=== PATIENT | male | born 1985 | race Caucasian/White ===

== ENCOUNTER 2020-11-27 21:20 | Emergency (ER) | payer BC ==
--- NOTE | 2020-11-27 23:12 | EDM.PDOC ---
ED HPI GENERAL MEDICAL PROBLEM - General Chief Complaint: Lower Extremity Injury/Pain Stated Complaint: AIR BUBBLES IN LEG Time Seen by Provider: 11/27/20 22:01 Source of Information: Reports: Patient History Limitations: Reports: No Limitations - History of Present Illness INITIAL COMMENTS - FREE TEXT/NARRATIVE: Patient is a 35-year-old male presents today for evaluation of air in his legs. Patient has a what he thinks is an air pocket on the lateral side of his wall right ankle wound that developed a few years ago after a surgery. He developed symptoms similar on the left side. He became concerned because this was slightly painful. Is not red. He took a needle and poked it and no drainage came out of it. He was not sure what it was. He did mention he took a 18-hour car ride to [employer] this past week as well. He denies any shortness of breath leg swelling or other symptoms. Bilateral Lower Leg Pain Score (Numeric/FACES): 7 - Related Data Allergies Allergy/AdvReac Type Severity Reaction Status Date / Time No Known Allergies Allergy Verified 11/27/20 21:53 Past Medical History HEENT History: Reports: None Cardiovascular History: Reports: None Respiratory History: Reports: None - Infectious Disease History Infectious Disease History: Reports: Chicken Pox - Past Surgical History GI Surgical History: Reports: Appendectomy Musculoskeletal Surgical History: Reports: Other (See Below) Other Musculoskeletal Surgeries/Procedures:: ankle Social & Family History - Family History Family Medical History: No Pertinent Family History - Recreational Drug Use Recreational Drug Use: No Review of Systems - Review of Systems Review Of Systems: See Below Constitutional: Reports: No Symptoms Eyes: Reports: No Symptoms Ears: Reports: No Symptoms Nose: Reports: No Symptoms Mouth/Throat: Reports: No Symptoms Respiratory: Reports: No Symptoms Cardiovascular: Reports: No Symptoms GI/Abdominal: Reports: No Symptoms Genitourinary: Reports: No Symptoms Musculoskeletal: Reports: No Symptoms Skin: Reports: No Symptoms Neurological: Reports: No Symptoms Psychiatric: Reports: No Symptoms ED EXAM, GENERAL - Physical Exam Exam: See Below Exam Limited By: No Limitations General Appearance: Alert, WD/WN, No Apparent Distress Head: Atraumatic, Normocephalic Neck: Normal Inspection Respiratory/Chest: No Respiratory Distress, Lungs Clear, Normal Breath Sounds Cardiovascular: Normal Peripheral Pulses, Regular Rate, Rhythm, No Edema, No Gallop, No Murmur GI/Abdominal: Normal Bowel Sounds, Soft, Non-Tender, No Abnormal Bruit Back Exam: Normal Inspection, Full Range of Motion Extremities: Normal Inspection, Normal Range of Motion, Non-Tender, No Pedal Edema, Normal Capillary Refill Neurological: Alert, Oriented, CN II-XII Intact, Normal Cognition, Normal Gait, Normal Reflexes, No Motor/Sensory Deficits Skin Exam: No Rash Lymphatic: No Adenopathy Course - Vital Signs Last Recorded V/S: Last Vital Signs Temp 97.8 F 11/27/20 21:53 Pulse 100 11/27/20 21:53 Resp 17 11/27/20 21:53 BP 135/77 11/27/20 21:53 Pulse Ox 97 11/27/20 21:53 Departure - Departure Time of Disposition: :17 Disposition: Home, Self-Care 01 Condition: Good Clinical Impression: General medical exam - Discharge Information *PRESCRIPTION DRUG MONITORING PROGRAM REVIEWED*: Not Applicable *COPY OF PRESCRIPTION DRUG MONITORING REPORT IN PATIENT MYLENE: Not Applicable Instructions: Muscle Strain, [id number] Referrals: PCP,None [Primary Care Provider] - Forms: ED Department Discharge Additional Instructions: The following information is given to patients seen in the emergency department who are being discharged to home. This information is to outline your options for follow-up care. We provide all patients seen in our emergency department with a follow-up referral. The need for follow-up, as well as the timing and circumstances, are variable depending upon the specifics of your emergency department visit. If you don't have a primary care physician on staff, we will provide you with a referral. We always advise you to contact your personal physician following an emergency department visit to inform them of the circumstance of the visit and for follow-up with them and/or the need for any referrals to a consulting specialist. The emergency department will also refer you to a specialist when appropriate. This referral assures that you have the opportunity for follow-up care with a specialist. All of these measure are taken in an effort to provide you with optimal care, which includes your follow-up. Under all circumstances we always encourage you to contact your private physician who remains a resource for coordinating your care. When calling for follow-up care, please make the office aware that this follow-up is from your recent emergency room visit. If for any reason you are refused follow-up, please contact the [facility] Emergency Department at and asked to speak to the emergency department charge nurse. Please follow up with your primary care physician. If you do not have a primary care physician, see below: [facility] [address] [place] [address] [facility] [address] [place] [address] You were seen today for what is some possibly air pockets in your legs. We did a sonogram at the bedside did not seem to be a blood vessel. Unclear what this is. We want you to get a DVT study tomorrow but you have to go out of town. We recommend that you please come back as early venous to have this DVT study completed. If you have any other concerning signs or symptom please return to ED. Sepsis Event Note (ED) - Evaluation Sepsis Screening Result: No Definite Risk - Focused Exam Vital Signs: Vital Signs Temp Pulse Resp BP Pulse Ox 11/27/20 21:53 97.8 F 100 17 135/77 97 - Assessment/Plan Plan: Patient is a 35-year-old male presents today for evaluation of a possible air pocket in his leg. On exam there is a fluctuant area but we did a bedside sono no areas of polyps does not look a abscess or any cellulitis. We wanted to give patient some anticoagulation have him return for DVT study in the morning however he is going to [place] tomorrow and states he cannot cancel a trip. We spoke to him about a concern of having a DVT study states that he can try to come on Monday. Since patient will not be able to get the ultrasound done tomorrow Lovenox will wear for 12 hours will not give him any anticoagulations today.
== END 2020-11-27 23:29 | disposition home or self-care (01) ==
LOC: EDBD 21:20 → MW.ED 21:20
DX: Z00.8 Encounter for other general examination (principal)
CPT/HCPCS: 99283

== ENCOUNTER 2021-01-10 23:11 | Emergency (ER) | payer BC ==
[2021-01-11] MEDS ORDERED: Bacitracin Oint 1 GM U/D Packet TOP ONE (02:15)
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
== END 2021-01-11 02:26 | disposition home or self-care (01) ==
LOC: MW.ED 23:11
DX: T24.232A Burn of second degree of left lower leg, initial encounter (principal); H11.32 Conjunctival hemorrhage, left eye; I10 Essential (primary) hypertension; Z72.0 Tobacco use; X08.8XXA Exposure to other specified smoke, fire and flames, initial encounter
CPT/HCPCS: 16020; 99283-25

== ENCOUNTER 2021-01-30 15:37 | Emergency (ER) | payer BC ==
[2021-01-30] MEDS ORDERED: Sodium Chloride 0.9% 2.5 ML Syringe FLUSH PRN (18:21)
[2021-01-30] MEDS ORDERED: Sodium Chloride 0.9% 10 ML Syringe FLUSH PRN (18:21)
[2021-01-30] MEDS ORDERED: Sodium Chloride 0.9% 1,000 ML IV ONE (18:22)
[2021-01-30] MEDS ORDERED: Ketorolac 30 MG/ML SDV IVPUSH ONE (18:22)
[2021-01-30] MEDS ORDERED: Ondansetron 4 MG/2 ML SDV IVPUSH ONE (18:22)
--- NOTE | 2021-01-30 18:22 | EDM.PDOC ---
ED HPI GENERAL MEDICAL PROBLEM - General Chief Complaint: General Stated Complaint: HEADACHE SINUS STOMACHE Time Seen by Provider: 01/30/21 18:15 Source of Information: Reports: Patient History Limitations: Reports: No Limitations - History of Present Illness INITIAL COMMENTS - FREE TEXT/NARRATIVE: HISTORY AND PHYSICAL: History of present illness: The patient is a 35-year-old male who presents to the emergency departments with complaints of fatigue that started yesterday and shortness of breath, dizziness, dry cough, diarrhea, decreased appetite, headache, dry throat that started today. The patient states that his children tested positive for COVID-19 four days ago. He and his both tested negative. They then tested the next 24 hours where his tested positive and he again tested negative. Now he is having Covid-like symptoms. She has not taken anything [id number] for his symptoms. Patient denies any fever, chills, change in vision, syncope or near syncope. Denies any chest pain, back pain, shortness of breath or cough. Denies any abdominal pain, vomiting, constipation or dysuria. Has not noted any blood in urine or stool. In the emergency department the patient is hemodynamically stable with a blood pressure of 133/73 and a pulse of 97. The patient is afebrile with a temperature of 97.5. The patient is in no respiratory distress with a respiration rate of 16 and a SPO2 of 98% on room air. Review of systems: As per history of present illness and below otherwise all systems reviewed and negative. Past medical history: As per history of present illness and as reviewed below otherwise noncontributory. Surgical history: As per history of present illness and as reviewed below otherwise noncontributory. Social history: See social history for further information Family history: As per history of present illness and as reviewed below otherwise noncontributory. Physical exam: General: Well developed and well nourished. Alert and orientated x 3. Nontoxic in appearance and in no acute distress. Vital signs are stable and have been reviewed by me. Nursing notes were reviewed. HEENT: Atraumatic, normocephalic, pupils equal and reactive bilaterally, negative for conjunctival pallor or scleral icterus, mucous membranes moist, TMs normal bilaterally, throat clear, neck supple, nontender, trachea midline. No drooling or trismus noted. No meningeal signs. No hot potato voice noted. Lungs: Clear to auscultation bilaterally. No wheezes, rales, or rhonchi. Chest nontender. Normal work of breathing, no accessory muscles used. Heart: S1S2, regular rate and rhythm without overt murmur, gallops, or rubs. No JVD. No peripheral edema Abdomen: Soft, nondistended, nontender. Normoactive bowel sounds. Negative for masses or costovertebral tenderness. Skin: Intact, warm, dry. No lesions or rashes noted. Hematologic: No petechiae or purpra. Mucosa appropriate color and normal nail bed color and refill. Extremities: Atraumatic, moves all extremities per self without difficulty or deficits, negative for cords or calf pain. Neurovascular unremarkable. Neuro: Awake, alert, oriented. Cranial nerves II through XII unremarkable. Cerebellum unremarkable. Motor and sensory unremarkable throughout. Exam nonfocal. Psychiatric: Mood and affect are appropriate. Normal thought process. Answering questions appropriately. Notes: *This patient was seen and evaluated during the 2019 SARS-CoV-2 novel coronavirus pandemic period. Community viral transmission is ongoing at time of this encounter and the emergency department is operating under pandemic response procedures. As stated above the patient is a 35-year-old male who presents to the emergency department with fatigue that started yesterday, shortness of breath, dizziness, dry cough, diarrhea, decreased appetite, dry throat, headache that started today. His children were diagnosed with Covid 4 days ago and his 3 days ago. We will obtain a Covid swab, CBC, CMP, and chest x-ray. I will treat the patient with IV fluids, Zofran, and Toradol. The patient is agreeable with this plan. The patient is positive for COVID-19. CBC is unremarkable. The patient's CMP is unremarkable except for BUN of 20, calcium 8, AST 61, ALT 135, albumin 3.0. Chest x-ray IMPRESSION: No acute cardiopulmonary findings. I have informed the patient of the positive COVID-19 swab. I told the patient that as he is low risk and his symptoms are mild he does not qualify for Regeneron. I informed him that if the symptoms do become worse to please return to the emergency room as we can reassess his need for Regeneron. The patient states that he is feeling better after the fluids, Toradol and Zofran. The patient is agreeable with this discharge plan. I have talked with the patient about today's findings, in addition to providing specific details for plan of care. Reassessment at the time of disposition demonstrates that the patient is in no acute distress. The patient is stable for discharge, counseling was provided and we discussed in great detail signs and symptoms that would prompt them to return to the Emergency Department. Medication, follow up and supportive care measures were reviewed and discussed. Voices understanding and is agreeable to plan of care. Denies any further questions or concerns at this time. Diagnostics: CBC, CMP, COVID-19 swab, chest x-ray Therapeutics: IV fluids, Toradol, Zofran Impression: COVID-19 Plan: 1. Your COVID-19 screening is positive. That means you do have the coronavirus and you are considered contagious. Your vital signs and oxygen saturation are well enough that you were able to monitor your symptoms at home. Continue to monitor for trouble breathing, new confusion or inability to arouse, bluish li ps or face or any of the other symptoms we discussed -if this occurs please return to the emergency room. 2. Please self quarantine until cleared by [facility] Department. Inform any persons that you have been in contact with since you started becoming symptomatic that you have tested positive; they should be made aware and take the appropriate steps as needed. 3. You can take NyQuil during the evening to help get a restful night sleep. May alternate Tylenol and ibuprofen as needed for pain and fever management. 4. [facility] will be calling you and following up with you. The [place] COVID 19 Hotline phone number , They are open Monday - Monday 7am - 7pm. Follow up with your primary care provider for re-evaluation and re-testing after the 10 day quarantine and discuss when you should be seen. 5. Your complaints of nausea and fatigue were treated with Zofran and IV fluids. Your chest x-ray was negative. And your blood work looked normal. Definitive disposition and diagnosis as appropriate pending reevaluation and review of above. - Related Data Allergies Allergy/AdvReac Type Severity Reaction Status Date / Time No Known Allergies Allergy Verified 11/27/20 21:53 Past Medical History HEENT History: Reports: None Cardiovascular History: Reports: Hypertension Respiratory History: Reports: None Oncologic (Cancer) History: Reports: None - Infectious Disease History Infectious Disease History: Reports: Chicken Pox - Past Surgical History GI Surgical History: Reports: Appendectomy Musculoskeletal Surgical History: Reports: Other (See Below) Other Musculoskeletal Surgeries/Procedures:: ankle Social & Family History - Family History Family Medical History: No Pertinent Family History - Tobacco Use Tobacco Use Status *Q: Current Every Day Tobacco User Years of Tobacco use: 20 Packs/Tins Daily: 1 - Caffeine Use Caffeine Use: Reports: None - Recreational Drug Use Recreational Drug Use: No ED ROS GENERAL - Review of Systems Review Of Systems: Comprehensive ROS is negative, except as noted in HPI. ED EXAM, GENERAL - Physical Exam Exam: See Below (See dictation) Course - Vital Signs Last Recorded V/S: Last Vital Signs Temp 97.5 F 01/30/21 16:31 Pulse 84 01/30/21 20:37 Resp 16 01/30/21 16:31 BP 145/79 H 01/30/21 20:37 Pulse Ox 97 01/30/21 20:37 - Orders/Labs/Meds Labs: Laboratory Tests 01/30/21 01/30/21 01/30/21 Range/Units 18:13 18:50 18:50 WBC 7.77 (4.0-11.0) K/uL RBC 5.37 (4.50-5.90) M/uL Hgb 16.3 (13.0-17.0) g/dL Hct 46.2 (38.0-50.0) % MCV 86.0 (80.0-98.0) fL MCH 30.4 (27.0-32.0) pg MCHC 35.3 (31.0-37.0) g/dL RDW Std Deviation 44.8 (28.0-62.0) fl RDW Coeff of Zulma 14 (11.0-15.0) % Plt Count 339 (150-400) K/uL MPV 9.40 (7.40-12.00) fL Neut % (Auto) 40.7 L (48.0-80.0) % Lymph % (Auto) 38.4 (16.0-40.0) % [place] % (Auto) 19.0 H (0.0-15.0) % Eos % (Auto) 1.4 (0.0-7.0) % Baso % (Auto) 0.5 (0.0-1.5) % Neut # (Auto) 3.2 (1.4-5.7) K/uL Lymph # (Auto) 3.0 H (0.6-2.4) K/uL [place] # (Auto) 1.5 H (0.0-0.8) K/uL Eos # (Auto) 0.1 (0.0-0.7) K/uL Baso # (Auto) 0.0 (0.0-0.1) K/uL Nucleated RBC % 0.0 /100WBC Nucleated RBCs # 0 K/uL Sodium 137 (136-148) mmol/L Potassium 4.5 (3.5-5.1) mmol/L Chloride 102 (98-107) mmol/L Carbon Dioxide 28.4 (21.0-32.0) mmol/L BUN 20 H (7.0-18.0) mg/dL Creatinine 1.2 (0.8-1.3) mg/dL Est Cr Clr Drug Dosing 87.87 mL/min Estimated GFR (MDRD) > 60.0 ml/min Glucose 93 (74-106) mg/dL Calcium 8.0 L (8.5-10.1) mg/dL Total Bilirubin 0.2 (0.2-1.0) mg/dL AST 61 H (15-37) IU/L ALT 135 H (14-63) IU/L Alkaline Phosphatase 48 (46-116) U/L Total Protein 6.8 (6.4-8.2) g/dL Albumin 3.0 L (3.4-5.0) g/dL Globulin 3.8 (2.6-4.0) g/dL Albumin/Globulin Ratio 0.8 L (0.9-1.6) SARS-CoV-2 RNA (ANTIONE) POSITIVE H (NEGATIVE) Meds: Medications Discontinued Medications Generic Name Dose Route Start Last Admin Trade Name Freq PRN Reason Stop Dose Admin Sodium Chloride 1,000 mls @ 999 mls/hr 01/30/21 18:22 01/30/21 19:56 Normal Saline IV 01/30/21 19:22 999 mls/hr .BOLUS ONE Administration Ketorolac Tromethamine 30 mg 01/30/21 18:22 09/25/21 19:46 Ketorolac 30 Mg/Ml Sdv IVPUSH 01/30/21 18:23 Not Given ONETIME ONE Ondansetron HCl 4 mg 01/30/21 18:22 01/30/21 19:46 Ondansetron 4 Mg/2 Ml Sdv IVPUSH 01/30/21 18:23 Not Given ONETIME ONE Sodium Chloride 10 ml 01/30/21 18:21 Sodium Chloride 0.9% 10 Ml Syringe FLUSH ASDIRECTED PRN Keep Vein Open Sodium Chloride 2.5 ml 01/30/21 18:21 Sodium Chloride 0.9% 2.5 Ml Syringe FLUSH ASDIRECTED PRN Keep Vein Open Departure - Departure Time of Disposition: 19:03 Disposition: Home, Self-Care 01 Condition: Good Clinical Impression: COVID-19 - Discharge Information *PRESCRIPTION DRUG MONITORING PROGRAM REVIEWED*: Not Applicable *COPY OF PRESCRIPTION DRUG MONITORING REPORT IN PATIENT MYLENE: Not Applicable Instructions: COVID-19 Frequently Asked Questions, COVID-19: What to Do If You Are Sick- [facility] (07/22/2020) Referrals: Prabha Khanna, [Primary Care Provider] - Forms: ED Department Discharge Additional Instructions: The following information is given to patients seen in the emergency department who are being discharged to home. This information is to outline your options for follow-up care. We provide all patients seen in our emergency department with a follow-up referral. The need for follow-up, as well as the timing and circumstances, are variable depending upon the specifics of your emergency department visit. If you don't have a primary care physician on staff, we will provide you with a referral. We always advise you to contact your personal physician following an emergency department visit to inform them of the circumstance of the visit and for follow-up with them and/or the need for any referrals to a consulting specialist. The emergency department will also refer you to a specialist when appropriate. This referral assures that you have the opportunity for follow-up care with a specialist. All of these measure are taken in an effort to provide you with optimal care, which includes your follow-up. Under all circumstances we always encourage you to contact your private physician who remains a resource for coordinating your care. When calling for follow-up care, please make the office aware that this follow-up is from your recent emergency room visit. If for any reason you are refused follow-up, please contact the [facility] Emergency Department at and asked to speak to the emergency department charge nurse. Holden Flores [facility] [address] [place] [address] [facility] [address] [place] [id number] Plan: 1. Your COVID-19 screening is positive. That means you do have the coronavirus and you are considered contagious. Your vital signs and oxygen saturation are well enough that you were able to monitor your symptoms at home. Continue to monitor for trouble breathing, new confusion or inability to arouse, bluish lips or face or any of the other symptoms we discussed -if this occurs please return to the emergency room. 2. Please self quarantine until cleared by [facility] Department. Inform any persons that you have been in contact with since you started becoming symptomatic that you have tested positive; they should be made aware and take the appropriate steps as needed. 3. You can take NyQuil during the evening to help get a restful night sleep. May alternate Tylenol and ibuprofen as needed for pain and fever management. 4. The [facility] will be calling you and following up with you. The [place] COVID 19 Hotline phone number , They are open Monday - Monday 7am - 7pm. Follow up with your primary care provider for re-evaluation and re-testing after the 10 day quarantine and discuss when you should be seen. 5. Your complaints of nausea and fatigue were treated with Zofran and IV fluids. Your chest x-ray was negative. And your blood work looked normal. Sepsis Event Note (ED) - Evaluation Sepsis Screening Result: No Definite Risk
--- NOTE | 2021-01-30 19:12 | CR ---
INDICATION: Shortness breath, cough. TECHNIQUE: Chest 1 view. COMPARISON: None. FINDINGS: No focal consolidation, pleural effusion, or pneumothorax. Normal heart size and pulmonary vascularity. The bones are unremarkable. Bilateral nipple piercings. IMPRESSION: No acute cardiopulmonary findings. Dictated by Shy Cervantes MD @ 01/30/2021 7:12:13 PM (Electronically Signed)
[2021-01-30 19:19] LABS: BLOOD UREA NITROGEN,BUN 20 mg/dL (7.0-18.0); CARBON DIOXIDE,CO2 28.4 mmol/L (21.0-32.0); CHLORIDE,CL 102 mmol/L (98-107); GLUCOSE RANDOM 93 mg/dL (74-106); POTASSIUM,K 4.5 mmol/L (3.5-5.1); SODIUM,NA 137 mmol/L (136-148)
== END 2021-01-30 20:40 | disposition home or self-care (01) ==
LOC: MW.ED 15:37
DX: U07.1 COVID-19 (principal); I10 Essential (primary) hypertension; Z72.0 Tobacco use
CPT/HCPCS: 36415; 71045; 80053; 85025; 87635; 99285; J7030; 99283; U0002